=== PATIENT | female | born 1945 | race Two or more races ===

== ENCOUNTER 2022-03-12 15:12 | Emergency (ER) | payer OTHER ==
[~2022-03-12] VITALS: Ht 160 cm; Wt 70.8 kg
[~2022-03-12 15:12] MED LIST: IOPHEN DM-100 MG/5 M PO; ZITHROMAX500 MG PO
[2022-03-12] MEDS ORDERED: ATORVASTATIN CA40 MG PO (15:44)
[2022-03-12] MEDS ORDERED: PEPCID AC10 MG (15:45)
[2022-03-12] MEDS ORDERED: CARDURA1 MG PO (15:45)
== END 2022-03-12 18:34 | disposition home or self-care (01) ==
LOC: ER 15:12
DX: S67.195A Crushing injury of left ring finger, initial encounter (principal); W23.0XXA Caught, crushed, jammed, or pinched between moving objects, initial encounter; Y93.9 Activity, unspecified; Y92.9 Unspecified place or not applicable; Y99.9 Unspecified external cause status; I10 Essential (primary) hypertension